=== PATIENT | male | born 1940 | race Caucasian/White ===

== ENCOUNTER 2016-08-29 19:51 | Emergency (ER) | payer MEDICARE, OTHER ==
[~2016-08-29] VITALS: Ht 182.9 cm; Wt 105.0 kg
[~2016-08-29 19:51] MED LIST: ASPI81 PO; COLC1TAB7 PO; LORA-392 PO; MECL-62 PO; METHO500 PO; PRAV20TA67 PO; TAB-TAB PO; TOPR100T15 PO
[2016-08-29 20:09] VITALS: BP 172/94; PULSE 63; RESP 16; TEMP 98; O2SAT 98
[2016-08-29 20:33] VITALS: BP 172/94; PULSE 63; RESP 16; TEMP 98; O2SAT 98
[2016-08-29] MEDS ORDERED: METO50TA PO (20:42)
[2016-08-29] MEDS ORDERED: CLON0.5T PO (20:43)
[2016-08-29] MEDS ORDERED: AMLO5 PO (20:44)
[2016-08-29] MEDS ORDERED: SODIUM CHLORIDE 0.9% FLUSH 5 ML FLUSH IVF PRN (21:15)
--- NOTE | 2016-08-29 21:24 | PD ---
HPI Chief Complaint: Hypertension Time Seen by Provider: 21:03 Travel History International Travel<30 days: No Contact w/Intl Traveler<30days: No Traveled to known affect area: No History of Present Illness HPI 76-year-old male presents to the emergency department to have his blood pressure evaluated. Patient reports he is on a 6 month vacation and visiting the area from [place]. Patient states that he has not been eating properly and has not been taking his blood pressure medication as prescribed. Patient is prescribed metoprolol 50 mg twice a day and Norvasc once daily. Patient states prior to starting his medication his blood pressure was running in the 114 over 70s and he felt that since his blood pressure so well-controlled that he did not need to be taking his blood pressure medication on a regular basis. Patient did not share this decision with his primary care provider. Patient stopped taking his Norvasc. Patient states more recently he has also been increasing his caffeine consumption. Patient reports he typically drinks 1-2 cups of coffee a day but has been increasing his caffeine/coffee consumption to 10 cups per day. Patient states that he's felt jittery the last 2 days so decided to check his blood pressure and noticed that her blood pressure was elevated. Patient decided to double up on his medications so today earlier in the afternoon he decided to take 250 mg metoprolol tablets. The patient states he also later took his 5 mg of Norvasc. Patient says he then took a nap and when he awakened he felt so well he decided to check his blood pressure but noticed that it was quite elevated so became very concerned and decided to come to the emergency room for evaluation. Patient has taken no further blood pressure medication. Patient states occasionally he has a headache but has no headache at this time. Patient denies new onset headache sudden onset headache worst ever headache thunderclap headache denies visual disturbance double vision loss of vision or blurring of vision. Patient's had no confusion or change in mentation. Patient's had no change in speech. Patient denies any difficulty with swallowing. Patient's had no chest pain or palpitations. Patient's had no referred neck jaw back shoulder arm or abdominal pain. Patient denies any shortness of breath. Patient's had no respiratory illness fever or cough. Patient's had no hemoptysis. Patient denies any abdominal pain. Patient's had no nausea vomiting or change in bowel habits. Patient has had no urinary symptoms or flank pain. Patient's had no new upper extremity or lower extremity numbness tingling or weakness. Patient's had no ataxia of gait. Patient states he has not been in contact with his primary care provider [place] regarding his blood pressure issues. Patient states he feels well now but decided he should come in and get checked out. Patient has history of hypertension and dyslipidemia as well as anxiety. Patient denies any history of cardiac disease. Patient has had stress test as recently as 2 years ago that was reportedly negative. Patient is a nonsmoker. PFSH Past Medical History Hx Anticoagulant Therapy: Yes (81 MG ASA) Anxiety: Yes High Cholesterol: Yes Diminished Hearing: No Gout: Yes Hypertension: Yes Tetanus Vaccination: Unknown Past Surgical History Other Surgery: Yes (TONSILLECTOMY) Social History Alcohol Use: Yes (BEER 1-2 TIMES A MONTH) Tobacco Use: No Substance Use: No Allergies-Medications (Allergen,Severity, Reaction): Coded Allergies: No Known Allergies (Verified , 08/29/16) Reported Meds & Prescriptions Reported Meds & Active Scripts Active Hydrochlorothiazide 25 Mg Tab 25 Mg PO DAILY Reported Norvasc (Amlodipine Besylate) 5 Mg Tab 5 Mg PO DAILY Clonazepam 0.5 Mg Tab 0.5 Mg PO TID Metoprolol Tartrate 50 Mg Tab 50 Mg PO BID Multivitamin (Multivitamins) 1 Tab Tab 1 Tab PO DAILY Aspirin 81 Mg Tab 162 Mg PO DAILY Review of Systems Except as stated in HPI: all other systems reviewed are Neg General / Constitutional: No: Fever, Chills Eyes: No: Diploplia, Blurred Vision, Photophobia, Visual changes HENT: Positive: Headaches (occasional 1-2/10 none now), No: Vertigo, Lightheadedness, Congestion, Neck Stiffness, Neck Pain Cardiovascular: No: Chest Pain or Discomfort, Palpitations, Diaphoresis, Syncope, Dyspnea on exertion, Edema Respiratory: No: Cough, Shortness of Breath, Orthopnea, Hemoptysis, Pleuritic Pain Gastrointestinal: No: Nausea, Vomiting, Diarrhea, Abdominal Pain Genitourinary: No: Dysuria, Flank Pain Musculoskeletal: No: Myalgias, Arthralgias, Edema, Pain Skin: No Rash Neurologic: Positive: Headache (occasional 1-2/10), No: Weakness, Dizziness, Syncope, Focal Abnormalities, Coordination Problem, Ataxia, Change in Mentation , Slurred Speech, Paresthesia, Seizures, Sensory Disturbance Psychiatric: Positive: Anxiety (chronic not changed) Endocrine: No: Heat Intolerance, Cold Intolerance Hematologic/Lymphatic: No: Easy Bruising Physical Exam Narrative GENERAL: Well-developed well-nourished male in no acute distress no respiratory distress; GCS 15; blood pressure 172/94, heart rate 60 SKIN: Warm and dry. HEAD: Atraumatic. Normocephalic. EYES: Pupils equal and round. No scleral icterus. No injection or drainage. ENT: No nasal bleeding or discharge. Mucous membranes pink and moist. NECK: Trachea midline. No JVD. CARDIOVASCULAR: Regular rate and rhythm. RESPIRATORY: No accessory muscle use. Clear to auscultation. Breath sounds equal bilaterally. GASTROINTESTINAL: Abdomen soft, non-tender, nondistended. Hepatic and splenic margins not palpable. MUSCULOSKELETAL: Extremities without clubbing, cyanosis, or edema. No obvious deformities. NEUROLOGICAL: Awake and alert. No obvious cranial nerve deficits. Motor grossly within normal limits. Five out of 5 muscle strength in the arms and legs. Sensory exam intact. DTRs 2+ and equal. No limb ataxia. No pronator drift. Normal speech. PSYCHIATRIC: Appropriate mood and affect; insight and judgment normal. Data Data Last Documented VS Vital Signs Date Time Temp Pulse Resp B/P Pulse Ox O2 Delivery O2 Flow Rate FiO2 08/29/16 21:57 59 16 175/71 96 Room Air 08/29/16 20:33 98.0 Orders Electrocardiogram (08/29/16 21:03) Basic Metabolic Panel (Bmp) (08/29/16 21:03) Magnesium (Mg) (08/29/16 21:03) Troponin I (08/29/16 21:03) Bilateral Bp Monitoring (08/29/16 21:03) Oximetry (08/29/16 21:03) Sodium Chloride 0.9% Flush (Ns Flush) (08/29/16 21:15) Hydrochlorothiazide (Hydrodiuril) (08/30/16 09:00) Labs Laboratory Tests Test 08/29/16 21:30 Sodium Level 144 MEQ/L Potassium Level 3.7 MEQ/L Chloride Level 109 MEQ/L Carbon Dioxide Level 28.7 MEQ/L Anion Gap 6 MEQ/L Blood Urea Nitrogen 15 MG/DL Creatinine 0.91 MG/DL Estimat Glomerular Filtration 81 ML/MIN Rate Random Glucose 106 MG/DL Calcium Level 8.5 MG/DL Magnesium Level 2.2 MG/DL Troponin I LESS THAN 0.02 NG/ML MDM Medical Decision Making Medical Screen Exam Complete: Yes Emergency Medical Condition: Yes Medical Record Reviewed: Yes Interpretation(s) EKG normal sinus rhythm rate 60 prescription AV block no acute ST elevation or injury pattern change noted Differential Diagnosis Hypertension, uncontrolled hypertension, ACS Narrative Course Well-developed well-nourished male in no acute distress no respiratory distress with recent medication noncompliance for his blood pressure. Patient has just resumed today taking his blood pressure medication as prescribed and notes elevation of blood pressure without any specific end organ symptoms. EKG is sinus rhythm with first-degree AV block no comparison EKG is available there is no acute injury pattern or ectopy noted. BP: 154/79 @ 22:28 patient is stable for outpatient management Diagnosis Primary Impression: Hypertension Qualified Code: I10 - Essential hypertension Referrals: Primary Care Physician call for appointment Patient Instructions: General Instructions Additional Instructions: Take your current blood pressure medications as presently prescribed metoprolol 50 mg twice daily and Norvasc 5 mg daily Contact your primary care managing physician regarding ongoing adjustment of medication of current blood pressure medications add new b Med/Other Pt SpecificInfo: Prescription(s) given Scripts Hydrochlorothiazide 25 Mg Tab25 Mg PO DAILY #5 TAB Ref 0 Prov:Shameka Varghese MD 08/29/16 Disposition: DISCHARGE HOME Condition: Stable Shameka Varghese MD Aug 29, 2016 21:24
[2016-08-29 21:30] VITALS: RESP 16; O2SAT 98
[2016-08-29 21:55] VITALS: BP 174/81; PULSE 55; RESP 15; O2SAT 96
[2016-08-29 21:57] VITALS: BP 175/71; PULSE 59; RESP 16; O2SAT 96
[2016-08-29 22:02] LABS: CHLORIDE 109 MEQ/L (98-107); POTASSIUM 3.7 MEQ/L (3.5-5.1); SODIUM (NA) 144 MEQ/L (136-145)
[2016-08-29 22:05] LABS: ANION GAP 6 MEQ/L (5-15); BICARBONATE 28.7 MEQ/L (21.0-32.0); MAGNESIUM 2.2 MG/DL (1.5-2.5)
[2016-08-29 22:06] LABS: BLOOD UREA NITROGEN 15 MG/DL (7-18)
[2016-08-29 22:09] LABS: GLOMERULAR FILTRATION RATE 81 ML/MIN (>89)
[2016-08-29] MEDS ORDERED: HYDR25TA5 PO (22:25)
[2016-08-29 22:54] VITALS: BP 144/71; TEMP 97.9
[2016-08-30] MEDS ORDERED: HYDROCHLOROTHIAZIDE 25 MG TAB PO SCH (09:00)
--- NOTE | 2016-08-30 16:33 | EKG ---
Date Performed: 08/29/2016 Time Performed: 21:09:48 PTAGE: 76 years EKG: Sinus rhythm with 1st degree A-V block Consider left atrial abnormality Compared to previous tracing, DE interval is more prolonged, otherwise no significant change Abnormal ECG PREVIOUS TRACING : 08/26/2001 06.40 DOCTOR: Slim Ortega Interpretating Date/Time 08/30/2016 16:33:14
== END 2016-08-29 22:59 | disposition home or self-care (01) ==
LOC: PHED 19:51
DX: I10 Essential (primary) hypertension (principal); R94.31 Abnormal electrocardiogram [ECG] [EKG]
CPT/HCPCS: 80048; 83735; 84484; 93005